=== PATIENT | male | born 1995 ===

== ENCOUNTER 2017-03-21 04:38 | Emergency (ER) | payer OTHER ==
[2017-03-21 06:32] LABS: URINE APPEARANCE CLEAR; URINE BILIRUBIN NEGATIVE (NEGATIVE); URINE BLOOD NEGATIVE (NEGATIVE); URINE COLOR YELLOW; URINE GLUCOSE (UA) NEGATIVE (NEGATIVE); URINE LEUKOCYTE ESTERASE NEGATIVE (NEGATIVE); URINE NITRITE NEGATIVE (NEGATIVE); URINE PROTEIN NEGATIVE (NEGATIVE); URINE UROBILINOGEN NORMAL (0-1 mg/dl)
--- NOTE | 2017-03-21 06:44 | US ---
SCROTUM CONTENTS COMPARISON: None. HISTORY: 21 years old. Right testicular pain. Past history of portion of loss of left testicle. FINDINGS: Right testicle: Normal size, 4.4 x 2.1 x 2.9 cm. Testicular microlithiasis. Normal blood flow. No mass. Right epididymis: Normal size at the head, 7 x 7 x 9 mm. Normal blood flow. 2.8 mm simple cyst. Right varicocele: None Right hydrocele: None Left testicle: Removed Left epididymis: Remove Left varicocele: None Left hydrocele: None IMPRESSION: 1. No acute finding of the right testicle. Normal blood flow. No mass. Testicular microlithiasis has been described as a risk factor for testicular cancer. 2. Normal right epididymis. 3. Status post left orchiectomy. Preliminary report by [facility] radiologist Markus Phillips M.D. 03/21/2017 at [id number]
[2017-03-22 14:23] LABS: CHLAMYDIA BD Negative (Negative); N.GONORRHOEAE BD Negative (Negative); SOURCE Urine (())
== END 2017-03-21 07:26 | disposition home or self-care (01) ==
LOC: ED 04:38
DX: N45.1 Epididymitis (principal); I10 Essential (primary) hypertension